=== PATIENT | male | born 2005 | race Caucasian/White ===

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

== ENCOUNTER 2023-01-04 18:38 | Emergency (ER) | payer OTHER, BC ==
[~2023-01-04] VITALS: Ht 175.3 cm; Wt 56.7 kg
[2023-01-04 18:45] VITALS: BP 124/66
== END 2023-01-04 21:15 | disposition home or self-care (01) ==
LOC: ER 18:38
DX: S91.202A Unspecified open wound of left great toe with damage to nail, initial encounter (principal); W01.198A Fall on same level from slipping, tripping and stumbling with subsequent striking against other object, initial encounter
CPT/HCPCS: 73660; 99283-25

== ENCOUNTER 2024-10-25 11:57 | Emergency (ER) | payer BC, OTHER ==
[~2024-10-25] VITALS: Ht 177.8 cm; Wt 63.5 kg
[2024-10-25 12:05] VITALS: BP 130/81
== END 2024-10-25 12:12 | disposition home or self-care (01) ==
LOC: ER 11:57
DX: S99.921A Unspecified injury of right foot, initial encounter (principal); X58.XXXA Exposure to other specified factors, initial encounter
CPT/HCPCS: 99282